=== PATIENT | female | born 1995 | race Caucasian/White ===

== ENCOUNTER 2018-01-31 12:33 | Emergency (ER) | payer MEDICAID ==
[~2018-01-31] VITALS: Ht 157.5 cm; Wt 81.6 kg
--- NOTE | 2018-01-31 12:49 | NUR ---
right ankle injury mechanical fall yesterday----discoloration and swelling noted, tender hx---denies rx---none
[2018-01-31 12:54] VITALS: BP 110/57
[2018-01-31] MEDS ORDERED: KETOROLAC 60 MG/2 ML VIAL IM ONE ×2 (13:39→13:40)
--- NOTE | 2018-01-31 13:39 | NUR ---
WAITING FOR X RAY RESULTS. IN NAD. FAMILY AT BEDSIDE.
[2018-01-31] MEDS ORDERED: HYDROcodone/APAP 5/325 MG 1 TAB TAB PO ONE (14:10)
[2018-01-31 15:19] VITALS: BP 129/69
--- NOTE | 2018-01-31 15:20 | NUR ---
Patient discharged with v/s stable. Written and verbal after care instructions given and explained. Patient alert, oriented and verbalized understanding of instructions. Ambulatory with steady gait. All questions addressed prior to discharge. ID band removed. Patient advised to follow up with PMD. Rx of MOTRIN, TRAMADOL given. Patient educated on indication of medication including possible reaction and side effects. Opportunity to ask questions provided and answered.
== END 2018-01-31 15:20 | disposition home or self-care (01) ==
LOC: MED 12:33
DX: S92.351A Displaced fracture of fifth metatarsal bone, right foot, initial encounter for closed fracture (principal); W18.39XA Other fall on same level, initial encounter; Y93.89 Activity, other specified; Y99.8 Other external cause status; Y92.89 Other specified places as the place of occurrence of the external cause
CPT/HCPCS: 29515; 73610; 73630; 96372; 99284; J1885; Q0092